=== PATIENT | male | born 1950 | race Two or more races ===

== ENCOUNTER 2018-11-29 09:37 | Observation (INO) | payer OTHER, MEDICAID ==
[~2018-11-29] VITALS: Ht 170.2 cm; Wt 161.5 kg
[2018-11-29 09:43] VITALS: Ht 170.2 cm; Wt 161.5 kg
--- NOTE | 2018-11-29 09:55 | NUR ---
PATIENT PRESENTS TO ED WITH C/O PRESSURE TO STERNAL REGION OF CHEST SINCE YESTERDAY. DENIES THAT PAIN RADIATES ELSEWHERE, AND STS THIS IS THE FIRST TIME HE HAS EXPERIENCE THE PRESSURE. BREATHING IS E/U, BILATERAL CHEST RISE. DENIES NVD. DR. NICHOLAS PERFORMED MSE
[2018-11-29 10:28] LABS: CALCIUM 8.3 mg/dL (8.5-10.1); CARBON DIOXIDE 26.3 mmol/L (21-32); CHLORIDE SERUM 105 mmol/L (98-107); CREATININE SERUM 1.2 mg/dL (0.7-1.3); GFR1 > 60 mL/min; GLUCOSE SERUM 129 mg/dL (74-106); POTASSIUM SERUM 3.8 mmol/L (3.5-5.1); SODIUM SERUM 140 mmol/L (136-145)
[2018-11-29 10:36] LABS: BASOPHIL % 0.2 % (0-2); PLATELET COUNT 336 x10^3mcL (130-400)
[2018-11-29 10:41] LABS: ALKALINE PHOSPHATASE 87 U/L (46-116); ALT/SGPT 15 U/L (16-63); AMYLASE 83 U/L (25-115); AST/SGOT 8 U/L (15-37); BILIRUBIN TOTAL 0.43 mg/dL (0.20-1.00); CHOLESTEROL 149 mg/dL (<200); HDL CHOLESTEROL 41 mg/dL (40-60); LIPASE 155 IU/L (73-393); T4(THYROXINE) 7.4 ug/dL (4.7-13.3); TOTAL PROTEIN, SERUM 7.8 g/dL (6.4-8.2)
[2018-11-29 10:43] LABS: ALBUMIN 2.9 g/dL (3.4-5.0)
--- NOTE | 2018-11-29 11:26 | NUR ---
PT RESTING AT BEDSIDE IN NAD. BREATHING E/U, BILATERAL CHEST RISE. BED AT LOWEST LEVEL. CALL LIGHT IN REACH. LIGHTS DIMMED TO PROMOTE PATIENT COMFORT.
[2018-11-29 11:55] LABS: AMPHETAMINE QUAL UR NONE DETECTED (See below)
[2018-11-29 12:03] LABS: UA SPECIFIC GRAVITY 1.025 (1.005-1.035)
[2018-11-29 12:04] LABS: microscopic required? YES; urine erythrocyte 1+ (NEGATIVE)
--- NOTE | 2018-11-29 12:22 | NUR ---
PT REQUESTS FOR IRINEO. APPROVED BY
--- NOTE | 2018-11-29 13:14 | NUR ---
REPORT GIVEN TO EVAN ELISE
--- NOTE | 2018-11-29 13:22 | NUR ---
RECEIVED PT VIA [facility] FROM E/D, ACCOMPANIED BY RN AND TRANSPORTER. PT A/A/O X 4, CALM, COOPERATIVE, WITH DIZZINESS AT THIS TIME. PT ABLE TO AMBULATE FROM [employer] TO BED WITHOUT GAIT OR BALANCE IMPAIRMENT. ON TELE # 24, HR 60, DENIES CHEST PAIN OR DISCOMFORT AT THIS TIME. NO RESPIRATORY DISTRESS NOTED. FALL RISK PROTOCOL INITIATED. 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 IV SITE RAC 20G, CDI. ORIENTED PT TO ROOM, BED CONTROLS, CALL LIGHT SYSTEM. PT VERBALIZED UNDERSTANDING. SIDE RAILS UP X 2, BED IN LOW POSITION. WILL ENDORSE TO EVAN GONSALEZ.
[2018-11-29 13:49] VITALS: BP 104/53
[2018-11-29 16:34] VITALS: BP 122/62
--- NOTE | 2018-11-29 18:37 | NUR ---
DENIED CHEST PAIN. OBESITY, BUT AMBULATORY. NM CARDIAC REST TEST DONE. STRESS TEST TOMORROW. TOLERATED CARDIAC DIET WELL. ENDORSED CARE TO [facility] NURSE.
--- NOTE | 2018-11-29 19:25 | NUR ---
PT RESTING IN BED, NO ACUTE DISTRESS NOTED. AOX4, DENIES ROSAS, SLIGHT DIZZINESS. TELE #24, SR W/ PAC'S, DENIES CP. PULSES PALPABLE BILAT, DENIES NUMBNESS/TINGLING IN FEET. TRACE EDEMA BLE. PT RESP EVEN AND UNLABORED ON RA, DENIES SOB. DIM BILAT BASES, CTA UPPER LOBES. OBESE PT, ABD ROUND, DENIES PAIN W/ PALPATION. PT VOIDS FREELY W/O DYSURIA. PT REPORTS USING A CANE INTERMITTENTLY AT HOME WHEN NEEDED, SKIN INTACT. PT DENIES PAIN AT THIS TIME, IV SITE SALINE LOCKED TO THE RAC, NO REDNESS, SWELLING OR PAIN NOTED. ALL COMFORT AND SAFETY MEASURES PROVIDED FOR, CALL LIGHT WITHIN REACH, BED IN LOWEST POSITION, WILL CONTINUE TO MONITOR.
[2018-11-29 21:01] VITALS: BP 126/62
--- NOTE | 2018-11-30 05:15 | NUR ---
PT RESTED IN INTERVALS DURING SHIFT, NO ACUTE CHANGES OCCURRING OVERNIGHT. PT DENIES CP DURING SHIFT, DENIES LIGHTHEADEDNESS/DIZZINESS. PT ABLE TO AMBULATE TO RESTROOM WITHOUT ANY ASSISTANCE. TOLERATED WELL. PT PROVIDED WITH 3 UNITS REG INSULIN LAST NIGHT FOR BLOOD SUGAR= 196, THIS MORNING BLOOD SUGAR= 201, WILL PROVIDE INSULIN PER SLIDING SCALE. IV SITE REMAINS PATENT, NO REDNESS, SWELLING OR PAIN NOTED, ALL COMFORT AND SAFETY MEASURES PROVIDED FOR, CALL LIGHT WITHIN REACH, BED IN LOWEST POSITION, WILL CONTINUE TO MONITOR.
[2018-11-30 05:33] VITALS: BP 151/76
--- NOTE | 2018-11-30 06:15 | NUR ---
SPOKE TO DR. WONG IN REGARDS TO PT A1C= 6.6 AND NO SLIDING SCALE ORDERED YET, PER DR. WONG, NO NEED FOR SLIDING SCALE, WILL EDUCATE PT ABOUT DIET MODIFICATIONS AND EXERCISE. ALL QUESTIONS ANSWERED.
[2018-11-30 06:37] LABS: BASOPHIL % 0.4 % (0-2); PLATELET COUNT 331 x10^3mcL (130-400); RED CELL DISTRIBUTION WIDTH 20.3 % (11.5-14.5)
[2018-11-30 06:41] LABS: CALCIUM 8.4 mg/dL (8.5-10.1); CHLORIDE SERUM 106 mmol/L (98-107); CREATININE SERUM 1.2 mg/dL (0.7-1.3); GFR1 > 60 mL/min; GLUCOSE SERUM 112 mg/dL (74-106); SODIUM SERUM 141 mmol/L (136-145)
--- NOTE | 2018-11-30 07:49 | NUR ---
A/A/OX4; DENIED CHEST PAIN. TELE#24 NSR; HR = 78; NO RESP DISTRESS ON RA. O2 SAT 96% RA. OBESITY. BUT AMBULATED WITHOUT ASSIST IN ROOM AND HALLWAY. TRACE EDEMA TO BLE. IVHL'D TO RAC W/ 20G NEEDLE. LIGHT AND NO CAFFEINE DIET BREAKFAST FOR CARDIAC STRESS TEST AT 1300. DENIED ANY PAIN. CALL LIGHT IN REACH.
[2018-11-30 09:01] VITALS: BP 157/83
[2018-11-30 16:38] VITALS: BP 157/83
--- NOTE | 2018-11-30 17:15 | NUR ---
SRINI DONE. RESULT REVIEWED BY DR. GILMAN. OK TO DISCHARGE TO HOME PER ORDER. INSTRUCTION GIVEN. IV D/C'D. CONDITION STABLE.
== END 2018-11-30 17:15 | disposition home or self-care (01) | DRG 313 ==
LOC: ED 09:37 → DU 12:21
PROVIDERS: Emergency Medicine; ADMIT Internal Medicine
DX: R07.89 Other chest pain (principal); E46 Unspecified protein-calorie malnutrition; E66.2 Morbid (severe) obesity with alveolar hypoventilation; Z68.43 Body mass index [BMI] 50.0-59.9, adult; R42 Dizziness and giddiness; R61 Generalized hyperhidrosis; D64.9 Anemia, unspecified; G47.33 Obstructive sleep apnea (adult) (pediatric); E66.9 Obesity, unspecified; Z85.9 Personal history of malignant neoplasm, unspecified; Z85.528 Personal history of other malignant neoplasm of kidney; Z90.5 Acquired absence of kidney
CPT/HCPCS: 83880; A9500; G0378; J1644; J2785; Q0092

== ENCOUNTER 2019-03-21 19:59 | Emergency (ER) | payer OTHER, MEDICAID ==
[~2019-03-21] VITALS: Ht 170.2 cm; Wt 143.8 kg
[2019-03-21 20:22] VITALS: Ht 170.2 cm; Wt 143.8 kg
[2019-03-21 22:15] LABS: BASOPHIL % 0.1 % (0-2); PLATELET COUNT 420 x10^3mcL (130-400); RED CELL DISTRIBUTION WIDTH 19.4 % (11.5-14.5)
[2019-03-21 22:36] LABS: CALCIUM 8.8 mg/dL (8.5-10.1); CARBON DIOXIDE 31.1 mmol/L (21-32); CHLORIDE SERUM 107 mmol/L (98-107); CREATININE SERUM 1.1 mg/dL (0.7-1.3); GFR1 > 60 mL/min; GLUCOSE SERUM 104 mg/dL (74-106); POTASSIUM SERUM 3.5 mmol/L (3.5-5.1); SODIUM SERUM 144 mmol/L (136-145)
[2019-03-21 22:44] LABS: UA SPECIFIC GRAVITY 1.015 (1.005-1.035); microscopic required? YES; urine erythrocyte 2+ (NEGATIVE)
[2019-03-21 22:53] LABS: ALKALINE PHOSPHATASE 96 U/L (46-116); ALT/SGPT 16 U/L (16-63); AST/SGOT 4 U/L (15-37); BILIRUBIN TOTAL 0.47 mg/dL (0.20-1.00); FREE T4 0.97 ng/dL (0.76-1.46)
[2019-03-21 22:54] LABS: ALBUMIN 3.2 g/dL (3.4-5.0); TOTAL PROTEIN, SERUM 8.5 g/dL (6.4-8.2)
[2019-03-21 23:45] VITALS: BP 155/84
== END 2019-03-21 23:45 | disposition home or self-care (01) ==
LOC: ED 19:59
PROVIDERS: Emergency Medicine
DX: R42 Dizziness and giddiness (principal); M79.661 Pain in right lower leg; R22.41 Localized swelling, mass and lump, right lower limb; M54.5 Low back pain; Z98.890 Other specified postprocedural states
CPT/HCPCS: 36415; 83880; 84439; J1885; J8597; Q0092

== ENCOUNTER 2019-06-15 21:50 | Emergency (ER) | payer OTHER, MEDICAID ==
[~2019-06-15] VITALS: Ht 170.2 cm; Wt 169.2 kg
[2019-06-15 21:55] VITALS: Ht 170.2 cm; Wt 169.2 kg
[2019-06-15 22:36] LABS: CALCIUM 8.1 mg/dL (8.5-10.1); CARBON DIOXIDE 31.1 mmol/L (21-32); CREATININE SERUM 1.3 mg/dL (0.7-1.3); POTASSIUM SERUM 4.2 mmol/L (3.5-5.1)
[2019-06-15 22:37] LABS: BASOPHIL % 0.5 % (0-2); PLATELET COUNT 361 x10^3mcL (130-400)
[2019-06-15 22:43] LABS: BILIRUBIN TOTAL 0.4 mg/dL (0.20-1.00); RED CELL DISTRIBUTION WIDTH 20.5 % (11.5-14.5); TOTAL PROTEIN, SERUM 7.7 g/dL (6.4-8.2)
[2019-06-15 22:45] LABS: ALBUMIN 3.1 g/dL (3.4-5.0)
[2019-06-16 02:22] VITALS: BP 146/65
== END 2019-06-16 02:22 | disposition short-term general hospital (02) ==
LOC: ED 21:50
PROVIDERS: Emergency Medicine
DX: R07.89 Other chest pain (principal); E66.9 Obesity, unspecified; D64.9 Anemia, unspecified; Z90.5 Acquired absence of kidney
CPT/HCPCS: 36415; Q0092

== ENCOUNTER 2019-12-28 19:55 | Emergency (ER) | payer OTHER ==
[~2019-12-28] VITALS: Ht 170.2 cm; Wt 168.3 kg
[2019-12-28 20:05] VITALS: Ht 170.2 cm; Wt 168.3 kg
[2019-12-28 23:24] VITALS: BP 140/83
== END 2019-12-28 23:24 | disposition home or self-care (01) ==
LOC: ED 19:55
DX: R50.9 Fever, unspecified (principal); R05 Cough; R42 Dizziness and giddiness; M79.10 Myalgia, unspecified site; E11.9 Type 2 diabetes mellitus without complications; Z98.890 Other specified postprocedural states
CPT/HCPCS: 87804

== ENCOUNTER 2020-03-03 14:05 | Emergency (ER) | payer OTHER ==
[~2020-03-03] VITALS: Ht 170.2 cm; Wt 171.9 kg
[2020-03-03 14:17] VITALS: Ht 170.2 cm; Wt 171.9 kg
[2020-03-03 15:32] LABS: CALCIUM 8.7 mg/dL (8.5-10.1); CARBON DIOXIDE 30.6 mmol/L (21-32); CHLORIDE SERUM 104 mmol/L (98-107); CREATININE SERUM 1.2 mg/dL (0.7-1.3); GFR1 > 60 mL/min; GLUCOSE SERUM 95 mg/dL (74-106); POTASSIUM SERUM 4.1 mmol/L (3.5-5.1); SODIUM SERUM 140 mmol/L (136-145)
[2020-03-03 16:15] VITALS: BP 108/51
== END 2020-03-03 16:15 | disposition home or self-care (01) ==
LOC: ED 14:05
PROVIDERS: Emergency Medicine
DX: M54.5 Low back pain (principal); M13.862 Other specified arthritis, left knee; M13.861 Other specified arthritis, right knee; R35.0 Frequency of micturition; E11.9 Type 2 diabetes mellitus without complications
CPT/HCPCS: 36415

== ENCOUNTER 2020-12-02 21:06 | Emergency (ER) | payer OTHER ==
[~2020-12-02] VITALS: Ht 170.2 cm; Wt 173.3 kg
[2020-12-02 21:19] VITALS: BP 165/82; Ht 170.2 cm; Wt 173.3 kg
== END 2020-12-02 22:03 | disposition home or self-care (01) ==
LOC: ED 21:06
DX: M54.5 Low back pain (principal); G89.29 Other chronic pain; M25.562 Pain in left knee; M25.561 Pain in right knee; E11.9 Type 2 diabetes mellitus without complications